=== PATIENT | female | born 1960 | race Caucasian/White ===

== ENCOUNTER → 2016-10-09 | Outpatient (CLI) | payer OTHER | LOC: LAB.O 12:37 | PROVIDERS: ATTEND Psychiatry & Neurology Neurology | DX: D64.9 Anemia, unspecified (principal); R41.3 Other amnesia; R53.83 Other fatigue; M79.A9 Nontraumatic compartment syndrome of other sites; R51 Headache; M35.1 Other overlap syndromes; G70.00 Myasthenia gravis without (acute) exacerbation; M35.3 Polymyalgia rheumatica; M33.22 Polymyositis with myopathy; G61.81 Chronic inflammatory demyelinating polyneuritis; B02.29 Other postherpetic nervous system involvement; M54.12 Radiculopathy, cervical region; M54.13 Radiculopathy, cervicothoracic region; M54.16 Radiculopathy, lumbar region; M35.00 Sjogren syndrome, unspecified; R56.9 Unspecified convulsions; I77.9 Disorder of arteries and arterioles, unspecified ==

== ENCOUNTER 2017-04-28 10:58 | Emergency (ER) | payer OTHER ==
[2017-04-28 11:18] VITALS: TEMP 98.5; O2SAT 97
--- NOTE | 2017-04-28 12:32 | RAD ---
EXAM DESCRIPTION: XR CHEST 2 VIEWS CLINICAL HISTORY: Chest pain COMPARISON: None TECHNIQUE: PA/lateral FINDINGS: Heart size is normal. The lungs are clear. No acute bony abnormality. IMPRESSION: No acute cardiopulmonary process. Electronically signed by: Rainer Hernandez MD 04/28/2017 12:31 PM CDT
[2017-04-28] MEDS ORDERED: SODIUM CHLORIDE 0.9% 1000ML 1,000 ML IVS ONE (12:52)
--- NOTE | 2017-04-28 13:31 | ED.PDOC ---
History of Present Illness - General Chief Complaint: General Stated Complaint: weakness Time Seen by Provider: 04/28/17 11:50 Source: patient Exam Limitations: no limitations - History of Present Illness Initial Comments: PT WAS SENT BY HER PCP OFFICE FOR POSSIBLE ALLERGIC REACTION. SHE WENT TO [place] 1 WEEK AGO AND RECEIVED "THE RAJAN SHOT". SINCE THAT TIME SHE HAS BEEN FEELING BAD SINCE THAT TIME WITH A MULTITUDE OF COMPLAINTS. PRIMARILY THOUGH I THINK SHE IS WORRIED SHE HAS CAUSED SOME DAMAGE FROM THIS UNKNOWN INJECTION. THIS INJECTION HAS BEEN SURROUNDED BY [facility] AND HAS "SECRET INGREDIENTS" THAT ARE ADMINISTERED BY A PHYSICIAN IN [place] VIA IV WHICH IS PROPERTIED TO CURE CHRONIC PAIN. THE MATTER HAS REPORTEDLY BEEN INVESTIGATED BY THE [place] [facility]. Timing/Duration: 1 week Severity: moderate Improving Factors: nothing Worsening Factors: nothing Allergies/Adverse Reactions: Allergies Cephalexin [From Keflex] Allergy (Verified 04/28/17 11:19) Morphine Allergy (Verified 04/28/17 11:19) Nifedipine [From Adalat] Allergy (Verified 04/28/17 11:19) Promethazine Allergy (Verified 04/28/17 11:19) Review of Systems - Review of Systems Constitutional: States: weakness. Denies: chills, diaphoresis, fever EENTM: States: blurred vision. Denies: eye pain, tearing Respiratory: States: short of breath. Denies: cough, orthopnea Cardiology: Denies: chest pain, edema, palpitations, syncope Gastrointestinal/Abdominal: States: nausea. Denies: abdominal pain, vomiting Genitourinary: States: other - C/O OF BLISTERS FROM VAGINA TO ANUS WITH FOUL ODOR. Musculoskeletal: States: no symptoms reported Skin: States: no symptoms reported Neurological: States: no symptoms reported Endocrine: States: no symptoms reported Hematologic/Lymphatic: States: no symptoms reported Past Medical History (General) - Patient Medical History Hx Cardiac Disorders: Yes - enlarged heart Hx Hypertension: Yes Surgical History: cholecystectomy, Hysterectomy - Vaccination History Hx Tetanus, Diphtheria Vaccination: No Hx Influenza Vaccination: No Hx Pneumococcal Vaccination: No - Social History Hx Tobacco Use: No Hx Alcohol Use: No Hx Substance Use: No Hx Substance Use Treatment: No Hx Depression: No - Activities of Daily Living Hospice Agency (if applicable):: None - Female History Patient is a Female of Child Bearing Age (10 -59 yrs old): No Patient : No Family Medical History - Family History Mother Family History: Unknown Physical Exam - Physical Exam General Appearance: Anxious, No apparent distress Eye Exam: bilateral normal Ears, Nose, Throat: normal ENT inspection, normal pharynx Neck: non-tender, full range of motion, supple Respiratory: lungs clear, normal breath sounds, no respiratory distress Cardiovascular/Chest: regular rate, rhythm, no murmur Gastrointestinal/Abdominal: normal bowel sounds, non tender, soft, no organomegaly Rectal Exam: normal exam, other - NO LESIONS NOTED VULVAR, INTROITUS, PERINEUM OR RECTUM Back Exam: normal inspection, no CVA tenderness Extremity: normal range of motion, normal inspection, normal capillary refill Neurologic: alert, oriented x 3 Skin Exam: normal color, warm/dry Lymphatic: no adenopathy Progress - Progress Progress: 1127: CALLED PHYSICIANS OFFICE, NO ANSWER. ANSWERING MACHINE ONLY. 1130: CALLED [facility] BOARD SPOKE WITH MR PENG CYCLING INSTRUCTOR, HE STATED PHYSICIAN HAD SAT IN FRONT OF BOARD AND THAT THE INJECTION WAS KENALOG, DEXAMETHASONE, AND B12. 04/28/17 13:28 FEELS BETTER, WANTS TO LEAVE 04/28/17 13:30. SPOKE WITH DR MUELLER'S OFFICE. HE WAS FOUND THIS MORNING. OFFICE STAFF CONFIRMED THE CONTENTS OF THE INJECTION BUT DID NOT HAVE SPECIFIC DOSAGES. SHE STATES SHE CANNOT ACCESS PT'S MEDICAL RECORDS B/C THEY ARE IN SOLE POSSESSION OF THE PHYSICIAN AND PASSWORD PROTECTED. ADVISED PT TO CALL OFFICE THEN CONTACT BOARD. Departure - Departure Clinical Impression: Medication reaction Qualifiers: Encounter type: initial encounter Qualified Code(s): T88.7XXA - Unspecified adverse effect of drug or medicament, initial encounter Time of Disposition: 13:29 Disposition: Discharge to Home or Self Care Condition: Good Departure Forms: ED Discharge - Pt. Copy, Patient Portal Self Enrollment Instructions: Beware When Buying Medications Abroad, Non-Medication Pain Relief for Chronic Pain Referrals: Ashwin Dey MD [Primary Care Provider] - 1-2 Weeks
[2017-04-28 13:50] VITALS: BP 160/95
== END 2017-04-28 13:40 | disposition home or self-care (01) ==
LOC: ER 10:58
DX: T88.7XXA Unspecified adverse effect of drug or medicament, initial encounter (principal); I10 Essential (primary) hypertension; I51.7 Cardiomegaly; Z88.6 Allergy status to analgesic agent; Z88.8 Allergy status to other drugs, medicaments and biological substances; Y92.9 Unspecified place or not applicable

== ENCOUNTER → 2017-05-26 | Outpatient (CLI) | payer OTHER | END | disposition home or self-care (01) | LOC: GMAJ 14:34 | PROVIDERS: ATTEND Family Medicine | DX: Z00.00 Encounter for general adult medical examination without abnormal findings (principal); E07.9 Disorder of thyroid, unspecified ==

== ENCOUNTER → 2018-04-19 | Outpatient (CLI) | payer OTHER | LOC: GMAJ 15:29 | PROVIDERS: ATTEND Family Medicine | DX: R53.82 Chronic fatigue, unspecified (principal) ==

== ENCOUNTER → 2019-05-19 | Outpatient (CLI) | payer OTHER ==
--- NOTE | 2019-05-19 16:47 | CT ---
TECHNIQUE: Spiral CT examination of the paranasal sinuses. Multiplanar reformats provided. This exam was performed according to our departmental dose-optimization program, which includes automated exposure control, adjustment of the mA and/or kV according to patient size and/or use of iterative reconstruction technique. CLINICAL HISTORY PROVIDED: sinusitis COMPARISON: None available. FINDINGS: Right: Maxillary: Unremarkable. Ethmoid: Moderate diffuse mucosal thickening. Sphenoid: Moderate circumferential mucosal thickening. Frontal: Unremarkable. Infundibulum: Unremarkable. Left: Maxillary: Unremarkable. Ethmoid: Moderate diffuse mucosal thickening with inspissated secretions. Sphenoid: Moderate circumferential mucosal thickening. Frontal: Unremarkable. Infundibulum: Unremarkable. Nasal Passage: Septal Deviation: 2 mm leftward nasal septal deviation. Septal Spur: None of significance. Mucosa: Unremarkable. Vin Bullosa: Bilateral vin bullosa, right greater than left. Notable Anatomic Findings: None of significance. Visible Brain and Orbits: Unremarkable. Incidental Findings: None of significance. IMPRESSION: Chronic paranasal sinusitis, preferentially involving the sphenoid sinus and ethmoid air cells. Electronically signed by: Richard Villa MD 05/19/2019 4:45 PM CDT
== END ==
LOC: CT 11:00
PROVIDERS: ATTEND Family Medicine
DX: J32.0 Chronic maxillary sinusitis (principal); J32.3 Chronic sphenoidal sinusitis; J32.2 Chronic ethmoidal sinusitis; J01.80 Other acute sinusitis

== ENCOUNTER → 2019-06-27 | Outpatient (CLI) | payer OTHER | LOC: LAB.O 09:21 | PROVIDERS: ATTEND Physician Assistant | DX: L40.0 Psoriasis vulgaris (principal); Z79.899 Other long term (current) drug therapy ==

== ENCOUNTER → 2019-10-06 | Outpatient (CLI) | payer OTHER | LOC: LAB.O 10:56 | PROVIDERS: ATTEND Family Medicine | DX: E61.1 Iron deficiency (principal) ==

== ENCOUNTER → 2020-04-06 | Outpatient (CLI) | payer OTHER | LOC: GMAJ 10:27 | PROVIDERS: ATTEND Family Medicine | DX: E61.1 Iron deficiency (principal); I10 Essential (primary) hypertension ==

== ENCOUNTER → 2020-08-02 | Outpatient (CLI) | payer OTHER | LOC: GMAJ 14:33 | PROVIDERS: ATTEND Family Medicine | DX: I10 Essential (primary) hypertension (principal); Z79.899 Other long term (current) drug therapy; E78.00 Pure hypercholesterolemia, unspecified; I50.9 Heart failure, unspecified; E55.9 Vitamin D deficiency, unspecified ==

== ENCOUNTER → 2020-10-24 | Outpatient (CLI) | payer OTHER | LOC: GMAJ 11:30 | PROVIDERS: ATTEND Family Medicine | DX: E04.1 Nontoxic single thyroid nodule (principal) ==